=== PATIENT | female | born 1945 | race Hispanic/Latino ===

== ENCOUNTER → 2019-07-01 | Outpatient (CLI) | payer MEDICARE | END | disposition home or self-care (01) | LOC: SHCH 08:58 | PROVIDERS: ATTEND Internal Medicine Cardiovascular Disease | DX: I11.9 Hypertensive heart disease without heart failure (principal) | CPT/HCPCS: 93306 ==

== ENCOUNTER → 2019-07-09 | Outpatient (CLI) | payer MEDICARE | END | disposition home or self-care (01) | LOC: SHCH 09:50 | PROVIDERS: ATTEND Internal Medicine Cardiovascular Disease | DX: I87.2 Venous insufficiency (chronic) (peripheral) (principal) | CPT/HCPCS: 93970 ==

== ENCOUNTER → 2021-03-19 | Outpatient (CLI) | payer MEDICARE | END | disposition home or self-care (01) | LOC: SHCH 08:29 | PROVIDERS: ATTEND Internal Medicine Cardiovascular Disease | DX: R06.09 Other forms of dyspnea (principal); I20.9 Angina pectoris, unspecified | CPT/HCPCS: 93306; 93356 ==

== ENCOUNTER → 2021-03-29 | Outpatient (CLI) | payer MEDICARE ==
[~2021-03-29] VITALS: Ht 157.5 cm; Wt 105.2 kg
[~2021-03-29] MED LIST: REGADENOSON 0.4 MG/5 ML PF SYG IVP SCH
== END | disposition home or self-care (01) ==
LOC: SHCH 09:02
PROVIDERS: ATTEND Internal Medicine Cardiovascular Disease
DX: R07.9 Chest pain, unspecified (principal); I20.9 Angina pectoris, unspecified; R06.00 Dyspnea, unspecified
CPT/HCPCS: 78452; 93017; 96374; A9500 ×2

== ENCOUNTER → 2025-05-12 | Outpatient (CLI) | payer OTHER, MEDICARE ==
[~2025-05-12] MED LIST changes: +AEC81 PO; +ATOR40TA69 PO; +CLOP75TA32 PO; +IBUP-2077 PO; +IOHEXOL 350 MG/ML 100ML INFUS..BTL IV ONE; +ISOS30TA92 PO; +OLME-31 PO; +OMEP20TA20 PO; +OXYB-66 PO; -REGADENOSON 0.4 MG/5 ML PF SYG IVP SCH; +TIZA-194 PO
--- NOTE | 2025-05-13 07:00 | HMCIMG ---
EXAM: CT Cardiac Angiogram. CLINICAL HISTORY: Shortness of breath. TECHNIQUE: Thin collimated axial CT cardiac angiogram images were obtained. A CT scan is done according to ALARA (As Low As Reasonably Achievable). COMPARISON: None provided. FINDINGS: Coronary CT Angiography: Dominance of the coronary artery system: Right Left Main: The left main is a normal caliber vessel that gives rise to the LAD and circumflex arteries. The left main has no stenosis or plaques. There is a thin ramus intermedius arising from the left main artery. Left Anterior Descending Artery /T/ Diagonals: There is mild eccentric calcification in the proximal left anterior descending artery, causing mild narrowing of up to 10%. The rest of the proximal left anterior descending artery and the first diagonal branch have no stenosis or plaques. The mid and distal LAD appear normal. LAD is a type II vessel. Left Circumflex Artery /T/ Obtuse Marginals: There is mild eccentric calcification in the proximal left circumflex artery, causing mild narrowing of up to 10%. The rest of the left circumflex artery and its obtuse marginal branches (OM1) have no stenosis or plaques. The terminal portion of the left circumflex artery and the OM1 branch appear prominent and tortuous along the left inferolateral wall of the left lateral ventricle. Right Coronary Artery: There is mild eccentric calcification in the proximal right coronary artery, causing mild narrowing of up to 10%. The rest of the right coronary artery and the acute marginal are normal in course and show no plaques or stenosis. RCA is a dominant artery. The right posterior descending artery and right posterolateral branches have no stenosis or plaques. Cardiac Morphology: Left ventricular wall hypertrophy. The mitral valve leaflets are normal. The pericardium is normal, and there is no pericardial effusion. The aortic valve is tricuspid. Extracardiac findings: The visualised pulmonary arteries appear normal in caliber. The visualised lung parenchyma is unremarkable. The included portion of the upper abdomen appears normal. Impression:1. Mild coronary artery disease as described. CADRADS 1. No hemodynamically significant stenosis. The terminal portion of the left circumflex artery and the OM1 branch appear prominent and tortuous along the left inferolateral wall of the left lateral ventricle. 2. Right Dominant Circulation. [facility]
== END | disposition home or self-care (01) ==
LOC: RAH 07:39
PROVIDERS: ATTEND Internal Medicine Cardiovascular Disease
DX: I25.10 Atherosclerotic heart disease of native coronary artery without angina pectoris (principal); I77.1 Stricture of artery; I51.7 Cardiomegaly; R06.02 Shortness of breath; R94.39 Abnormal result of other cardiovascular function study
CPT/HCPCS: 75574; Q9967